=== PATIENT | female | born 1940 ===

== ENCOUNTER 2017-12-20 13:00 | Inpatient (IN) | payer OTHER ==
[~2017-12-20] VITALS: Ht 157.5 cm; Wt 72.6 kg
[2017-12-20] MEDS ORDERED: NORVASC5 MG PO (14:52)
[2017-12-20] MEDS ORDERED: EVISTA60 MG PO (14:52)
[2017-12-20] MEDS ORDERED: VENTOLIN HFA18 GM (14:53)
[2017-12-20] MEDS ORDERED: ASPIR 8181 MG PO (14:53)
[2017-12-20] MEDS ORDERED: SINGULAIR10 MG PO (14:54)
[2017-12-20] MEDS ORDERED: PROTONIX40 MG PO (14:54)
[2017-12-20] MEDS ORDERED: ARICEPT5 MG PO (14:54)
[2017-12-20] MEDS ORDERED: MAXIMUM DAILY1 EACH PO (14:55)
[2017-12-20] MEDS ORDERED: PROBIOTIC1 EAC1 PO (14:55)
[2017-12-20] MEDS ORDERED: TRAMADOL HCL50 MG PO (14:56)
[2017-12-29] MEDS ORDERED: GABAPENTIN800 MG PO (11:51)
[2017-12-29] MEDS ORDERED: CLONAZEPAM1 MG PO (11:51)
[2017-12-29] MEDS ORDERED: PERCOCET 5-3251 EACH PO (11:51)
[2017-12-29] MEDS ORDERED: DOCUSATE SODIU100 MG PO (11:51)
[2017-12-29] MEDS ORDERED: AMOX-CLAV 875-1 EACH PO (11:51)
== END 2017-12-29 18:01 | disposition home or self-care (01) | DRG 460 ==
LOC: O/R 12-28 05:40 → PED 12-28 05:40 → SURG 12-28 09:30 → PED 12-28 15:22
PROVIDERS: Orthopaedic Surgery Orthopaedic Surgery of the Spine
PROC: 0SG10AJ Fusion of 2 or more Lumbar Vertebral Joints with Interbody Fusion Device, Posterior Approach, Anterior Column, Open Approach (ICD-10-PCS; 2017-12-28)
PROC: 0ST20ZZ Resection of Lumbar Vertebral Disc, Open Approach (ICD-10-PCS; 2017-12-28)
PROC: 07DS3ZZ Extraction of Vertebral Bone Marrow, Percutaneous Approach (ICD-10-PCS; 2017-12-28)
PROC: 0SG10A0 Fusion of 2 or more Lumbar Vertebral Joints with Interbody Fusion Device, Anterior Approach, Anterior Column, Open Approach (ICD-10-PCS; principal; 2017-12-28 09:30)
DX: M48.061 Spinal stenosis, lumbar region without neurogenic claudication (principal); M41.86 Other forms of scoliosis, lumbar region; M51.36 Other intervertebral disc degeneration, lumbar region